=== PATIENT | male | born 1975 | race Hispanic/Latino ===

== ENCOUNTER → 2023-06-16 | Outpatient (CLI) | payer OTHER | END | disposition home or self-care (01) | LOC: EDSEX 07:59 → SHCH 07:59 | PROVIDERS: ATTEND Internal Medicine Cardiovascular Disease | DX: I51.89 Other ill-defined heart diseases (principal); R55 Syncope and collapse | CPT/HCPCS: 93306 ==

== ENCOUNTER → 2023-12-20 | Outpatient (CLI) | payer OTHER | END | disposition home or self-care (01) | LOC: SHCH 08:54 | PROVIDERS: ATTEND Internal Medicine Cardiovascular Disease | DX: I51.89 Other ill-defined heart diseases (principal); I42.0 Dilated cardiomyopathy; I51.7 Cardiomegaly | CPT/HCPCS: 93306 ==

== ENCOUNTER → 2024-02-01 | Outpatient (CLI) | payer OTHER | END | disposition home or self-care (01) | LOC: RAH 08:49 | PROVIDERS: ATTEND Family Medicine | DX: M51.34 Other intervertebral disc degeneration, thoracic region (principal); M54.16 Radiculopathy, lumbar region | CPT/HCPCS: 72148 ==